=== PATIENT | male | born 1975 | race Caucasian/White ===

== ENCOUNTER 2017-10-19 10:18 | Emergency (ER) | payer OTHER ==
[2017-10-19] MEDS ORDERED: NORMAL SALINE 1000 ML 1,000 ML IV ONE (11:11)
--- NOTE | 2017-10-19 11:12 | ER Document Report ---
ED Medical Screen (RME) - General Chief Complaint: High Blood Sugar Stated Complaint: BLOOD SUGAR CONCERNS Time Seen by Provider: 10/19/17 11:11 Notes: Patient was sent here from urgent care due to a blood sugar of 337. Patient states he has no history of diabetes. He states he went to urgent care today because he was feeling weak and dehydrated and is been having some diarrhea and achiness. TRAVEL OUTSIDE OF THE [place] IN LAST 30 DAYS: No - Related Data Allergies/Adverse Reactions: No Known Allergies Allergy (Verified 10/19/17 10:22) Past Medical History - Social History Chew tobacco use (# tins/day): No Frequency of alcohol use: None Drug Abuse: None - Past Medical History Cardiac Medical History: Reports: Hx Hypertension Renal/ Medical History: Denies: Hx Peritoneal Dialysis Past Surgical History: Reports: Hx Tonsillectomy - Immunizations Hx Diphtheria, Pertussis, Tetanus Vaccination: Yes - 2009 Physical Exam - Vital signs Vitals: Temp Pulse Resp BP Pulse Ox 99.3 F 102 H 21 H 136/86 H 96 10/19/17 10:30 10/19/17 10:30 10/19/17 10:30 10/19/17 10:30 10/19/17 10:30 Course - Vital Signs Vital signs: Temp Pulse Resp BP Pulse Ox 99.3 F 102 H 21 H 136/86 H 96 10/19/17 10:30 10/19/17 10:30 10/19/17 10:30 10/19/17 10:30 10/19/17 10:30 - Laboratory Laboratory results interpreted by me: 10/19/17 10:33 POC Glucose 334 H
[2017-10-19 11:36] LABS: ABSOLUTE BASOPHILS # (AUTO) 0.1 10^3/uL (0.0-0.2); ABSOLUTE EOSINOPHILS # (AUTO) 0.1 10^3/uL (0.0-0.6); ABSOLUTE LYMPHOCYTES (AUTO) 0.8 10^3/uL (0.5-4.7); ABSOLUTE MONOCYTES (AUTO) 0.5 10^3/uL (0.1-1.4); BASOPHILS % (AUTO) 1.5 % (0-2); EOSINOPHILS % (AUTO) 1.5 % (0-6); HEMATOCRIT 50.6 % (37.9-51.0); HEMOGLOBIN 17.4 g/dL (13.5-17.0); LYMPHOCYTES % (AUTO) 12.8 % (13-45); MEAN CORPUSCULAR HEMOGLOBIN 28.9 pg (27.0-33.4); MEAN CORPUSCULAR HGB CONC 34.4 g/dL (32.0-36.0); MEAN CORPUSCULAR VOLUME 84 fl (80-97); MONOCYTES % (AUTO) 8.3 % (3-13); PLATELET COUNT 247 10^3/uL (150-450); RED BLOOD COUNT 6.02 10^6/uL (4.35-5.55); RED CELL DISTRIBUTION WIDTH 12.9 % (11.5-14.0); SEGMENTED NEUTROPHILS % (AUTO) 75.9 % (42-78); TOTAL CELLS COUNTED % (AUTO) 100 %; WHITE BLOOD COUNT 6.6 10^3/uL (4.0-10.5)
[2017-10-19 11:42] LABS: APPEARANCE,URINE CLEAR; BILIRUBIN,URINE NEGATIVE (NEGATIVE); COLOR,URINE YELLOW; GLUCOSE, URINE >=500 mg/dL (NEGATIVE); KETONES,URINE 20 mg/dL (NEGATIVE); LEUKOCYTE ESTERASE,URINE NEGATIVE (NEGATIVE); NITRITE,URINE NEGATIVE (NEGATIVE); PROTEIN,URINE 30 mg/dL (NEGATIVE); URINE SPECIFIC GRAVITY 1.044; UROBILINOGEN,URINE NEGATIVE mg/dL (<2.0)
[2017-10-19 11:51] LABS: ALANINE AMINOTRANSFERASE 63 U/L (21-72); ALBUMIN 4.3 g/dL (3.5-5.0); ALKALINE PHOSPHATASE 95 U/L (38-126); ANION GAP 14 (5-19); ASPARTATE AMINO TRANSFERASE 29 U/L (17-59); BILIRUBIN,DIRECT 0.4 mg/dL (0.0-0.4); BILIRUBIN,TOTAL 1.1 mg/dL (0.2-1.3); BLOOD UREA NITROGEN 16 mg/dL (7-20); CALCIUM 9.6 mg/dL (8.4-10.2); CARBON DIOXIDE 23 mmol/L (22-30); CHLORIDE 101 mmol/L (98-107); GLUCOSE 322 mg/dL (75-110); POTASSIUM 3.8 mmol/L (3.6-5.0); SODIUM 138.3 mmol/L (137-145); TOTAL PROTEIN 7.3 g/dL (6.3-8.2)
--- NOTE | 2017-10-19 14:58 | ER Document Report ---
ED General - General Mode of Arrival: Ambulatory Information source: Patient TRAVEL OUTSIDE OF THE [place] IN LAST 30 DAYS: No <ISMAEL DEUTSCH - Last Filed: 10/19/17 21:10> <KEITH ASHER - Last Filed: 10/19/17 22:10> - General Chief Complaint: High Blood Sugar Stated Complaint: BLOOD SUGAR CONCERNS Time Seen by Provider: 10/19/17 11:11 Notes: Patient is a 41-year-old male presenting to the emergency department complaining of high blood sugar. Patient states that he went to urgent care today for symptoms of nausea, diarrhea, dizziness, body aches and weakness and was told his blood sugar was high. Patient states that he does not have a history of high blood sugar or diabetes. At bedside patient complained of right sided hip pain. Patient also denies dysuria, nausea at bedside, urine frequency or increased thirst. Patient states that his mother has Type 2 diabetes. (ISMAEL DEUTSCH) - Related Data Allergies/Adverse Reactions: No Known Allergies Allergy (Verified 10/19/17 10:22) Past Medical History - General Information source: Patient - Social History Smoking Status: Never Smoker Chew tobacco use (# tins/day): No Frequency of alcohol use: None Drug Abuse: None Family History: Other - Type 2 diabetes Patient has suicidal ideation: No Patient has homicidal ideation: No - Past Medical History Cardiac Medical History: Reports: Hx Hypertension Past Surgical History: Reports: Hx Tonsillectomy - Immunizations Hx Diphtheria, Pertussis, Tetanus Vaccination: Yes - 2009 <ISMAEL DEUTSCH - Last Filed: 10/19/17 21:10> Review of Systems - Review of Systems Constitutional: See HPI, Weakness EENT: No symptoms reported Cardiovascular: No symptoms reported Respiratory: No symptoms reported Gastrointestinal: See HPI, Diarrhea, Nausea Genitourinary: No symptoms reported Male Genitourinary: No symptoms reported Musculoskeletal: See HPI Skin: No symptoms reported Hematologic/Lymphatic: No symptoms reported Neurological/Psychological: No symptoms reported -: Yes All other systems reviewed and negative <ISMAEL DEUTSCH - Last Filed: 10/19/17 21:10> Physical Exam <ISMAEL DEUTSCH - Last Filed: 10/19/17 21:10> <KEITH ASHER - Last Filed: 10/19/17 22:10> - Vital signs Vitals: Temp Pulse Resp BP Pulse Ox 99.3 F 102 H 21 H 136/86 H 96 10/19/17 10:30 10/19/17 10:30 10/19/17 10:30 10/19/17 10:30 10/19/17 10:30 - Notes Notes: GENERAL: Alert, interacts well. No acute distress. HEAD: Normocephalic, atraumatic. EYES: Pupils equal, round, and reactive to light. Extraocular movements intact. ENT: Oral mucosa moist, tongue midline. NECK: Full range of motion. Supple. Trachea midline. LUNGS: Clear to auscultation bilaterally, no wheezes, rales, or rhonchi. No respiratory distress. HEART: Regular rate and rhythm. No murmurs, gallops, or rubs. ABDOMEN: Soft, non-tender. Non-distended. Bowel sounds present in all 4 quadrants. EXTREMITIES: Moves all 4 extremities spontaneously. Tender to palpation to the right hip ASIS. NEUROLOGICAL: Alert and oriented x3. Normal speech. PSYCH: Normal affect, normal mood. SKIN: Warm, dry, normal turgor. No rashes or lesions noted. BACK: No CVA tenderness bilaterally. (ISMAEL DEUTSCH) Course - Laboratory Result Diagrams: 10/19/17 11:18 10/19/17 11:18 <ISMAEL DEUTSCH - Last Filed: 10/19/17 21:10> - Laboratory Result Diagrams: 10/19/17 11:18 10/19/17 11:18 <KEITH ASHER - Last Filed: 10/19/17 22:10> - Re-evaluation Re-evalutation: 10/19/17 Patient presents with high blood sugar. No history of diabetes. Patient does not have a primary doctor. Patient was given fluids and blood sugar has come down. He will be started on metformin. Patient has been given information about diabetes and diabetes at work. He has been given a prescription for metformin and is to follow-up with a primary care doctor. Understands and agrees with plan. Stable for discharge. (KEITH ASHER) - Vital Signs Vital signs: Temp Pulse Resp BP Pulse Ox 97.9 F 98 18 141/93 H 98 10/19/17 15:30 10/19/17 15:30 10/19/17 15:30 10/19/17 15:30 10/19/17 15:30 - Laboratory Laboratory results interpreted by me: 10/19/17 10/19/17 10/19/17 10:33 11:18 11:18 RBC 6.02 H Hgb 17.4 H Lymphocytes % 12.8 L Glucose 322 H POC Glucose 334 H Urine Protein Urine Glucose (UA) Urine Ketones Urine Blood 10/19/17 10/19/17 11:18 14:42 RBC Hgb Lymphocytes % Glucose POC Glucose 264 H Urine Protein 30 H Urine Glucose (UA) >=500 H Urine Ketones 20 H Urine Blood SMALL H Discharge <ISMAEL DEUTSCH - Last Filed: 10/19/17 21:10> <KEITH ASHER - Last Filed: 10/19/17 22:10> - Discharge Clinical Impression: Hyperglycemia, New onset type 2 diabetes mellitus Condition: Stable Disposition: HOME, SELF-CARE Instructions: Diabetes ([facility]), Family Physicians / Practices, Hyperglycemia ([facility] ) Additional Instructions: Please contact a primary care doctor for follow-up regarding your high blood sugar and new diagnosis of probable type 2 diabetes. You can go online to the [place] [employer] or call [phone] for more information. At this time, please look at food labels and try to avoid things with sugar content of more than 10 g. Please avoid carbohydrates that have a high glycemic (or high sugar) index. These include tropical fruits, white bread, white rice, and white pasta. Avoid juice and soda that is not diet. Prescriptions: Metformin HCl [Glucophage 500 mg Tablet] 500 mg PO BID #60 tablet Metformin HCl 500 mg PO BID #60 tablet Forms: Return to Work Scribe Attestation: 10/19/17 22:10 I personally performed the services described in the documentation, reviewed and edited the documentation which was dictated to the scribe in my presence, and it accurately records my words and actions. (KEITH ASHER) Scribe Documentation - Scribe Written by Scribe:: Faviola Page, 10/19/2017 15:26 acting as scribe for :: Seb <ISMAEL DEUTSCH - Last Filed: 10/19/17 21:10>
[2017-10-19 15:37] VITALS: BP 141/93
== END 2017-10-19 15:37 | disposition home or self-care (01) ==
LOC: ER 10:18
DX: E11.65 Type 2 diabetes mellitus with hyperglycemia (principal); M25.551 Pain in right hip; R53.1 Weakness; R19.7 Diarrhea, unspecified; R11.0 Nausea; I10 Essential (primary) hypertension; Z83.3 Family history of diabetes mellitus
CPT/HCPCS: 99285; 96360; 36415; 82962; 85025; 80053; 81001; J7030

== ENCOUNTER → 2020-07-18 | Outpatient (CLI) | payer OTHER ==
--- NOTE | 2020-07-18 12:43 | RADIOLOGY REPORT (SQ) ---
EXAM DESCRIPTION: FOOT RIGHT COMPLETE IMAGES COMPLETED DATE/TIME: 07/18/2020 12:35 pm REASON FOR STUDY: CALCANEAL SPUR, UNSPECIFIED FOOT M77.30 CALCANEAL SPUR, UNSPECIFIED FOOT COMPARISON: None. NUMBER OF VIEWS: Three views. TECHNIQUE: AP, lateral and oblique radiographic images acquired of the right foot. LIMITATIONS: None. FINDINGS: MINERALIZATION: Normal. BONES: No acute fracture dislocation. No suspicious osseous lesions. Small plantar calcaneal enthes ophyte. JOINTS: No dislocation. SOFT TISSUES: No soft tissue swelling. No foreign body. OTHER: No other significant finding. IMPRESSION: No evidence of acute bony abnormality of right foot. Small plantar calcaneal enthesophyte. TECHNICAL DOCUMENTATION: JOB ID: [id number] 2010 [employer]- All Rights Reserved Reading location - IP/workstation name: [email or web address]
== END ==
LOC: RAD 12:19
PROVIDERS: ATTEND Internal Medicine
DX: M77.31 Calcaneal spur, right foot (principal)